=== PATIENT | male | born 1995 | race Caucasian/White ===

== ENCOUNTER 2018-04-04 22:34 | Inpatient (IN) ==
[2018-04-04 23:16] LABS: Basophils % 0.3 % (0.1-2.0); Eosinophils # 0.5 K/mm3 (0.0-0.4); Eosinophils % 4.8 % (0.1-12.0); Lymphocytes # 2.6 K/mm3 (0.7-4.5); Lymphocytes % 23.7 K/mm3 (10-50); Mean Corpuscular HGB Conc 32.6 g/dL (31.8-35.4); Mean Platelet Volume 8.1 fl (7.4-10.4); Monocytes # 0.5 K/mm3 (0.1-1.0); Monocytes % 4.8 % (1.7-9.3); Neutrophils # 7.4 K/mm3 (1.8-7.8); Neutrophils % 66.3 % (37.0-80.0); Platelet Count 268 K/mm3 (142-424); Red Blood Count 4.99 M/mm3 (4.60-6.20); Red Cell Distribution Width 12.6 % (11.5-17.5); White Blood Count 11.2 K/mm3 (4.8-10.8)
--- NOTE | 2018-04-04 23:26 | Emergency Department Note ---
ED Disposition Clinical Impression: Pilonidal cyst with abscess Abscess of skin or subcutaneous tissue Qualifiers: Site of cutaneous abscess: unspecified site Qualified Code(s): L02.91 - Cutaneous abscess, unspecified Disposition: Admitted as Observation Condition on Discharge: Good Instructions: DI for Skin Abscess Referrals: Hiren Toney [Primary Care Provider] - - Critical Care Critical Care Time: No Attestation: On 04/04/18, the high probability of a clinically significant, sudden or life threatening deterioration of the following system(s) required my full and direct attention, intervention and personal management. The time I documented below is in addition to time spent performing reported procedures but includes the following listed in this critical care notation. Medical Decision Making - Medical Records Medical records reviewed: Yes: I reviewed the patient's medical records. - Joe Inquiry Pt receiving controlled substance: No Vital Signs: 04/04/18 22:40 Temperature 98.8 F Temperature Source Oral Pulse Rate [Right Radial] 110 H Respiratory Rate 18 Blood Pressure [Right Arm] 163/99 Blood Pressure Mean [Right Arm] 120 Blood Pressure Source [Right Arm] Automatic Cuff Blood Pressure Position [Right Arm] Sitting 02 Sat by Pulse Oximetry 97 Oxygen Delivery Method Room Air - Lab Data Lab results reviewed: Yes: I reviewed the patient's lab results. Lab Results 04/04/18 23:05: WBC 11.2 H, RBC 4.99, Hgb 14.0 L, Hct 43.0, MCV 86.0, MCH 28.0, MCHC 32.6, RDW 12.6, Plt Count 268, MPV 8.1, Neut % (Auto) 66.3, Lymph % (Auto) 23.7, [place] % (Auto) 4.8, Eos % (Auto) 4.8, Baso % (Auto) 0.3, Neut # (Auto) 7.4 , Lymph # (Auto) 2.6, [place] # (Auto) 0.5, Eos # (Auto) 0.5 H, Baso # (Auto) 0.0 04/04/18 23:05: Sodium 143, Potassium 3.6, Chloride 105, Carbon Dioxide 29, Anion Gap 12.6, BUN 16, Creatinine 1.07, Estimated Creat Clear 229, Estimated GFR 86, Est GFR ( Amer) 105, Glucose 80, Calcium 9.2, Total Bilirubin 0.4 , AST 13 L, ALT 51, Alkaline Phosphatase 67, Total Protein 8.4 H, Albumin 4.0, Globulin 4.4 H, Albumin/Globulin Ratio 0.9 L 04/04/18 23:05: Lactic Acid 1.2 Result diagrams: 04/04/18 23:05 04/04/18 23:05 Orders (Tests/Meds): ED MEDICATIONS Generic Name Dose Route Start Last Admin Trade Name Freq PRN Reason Stop Dose Admin Sodium Chloride 1,000 mls @ 999 mls/hr 04/04/18 23:00 04/04/18 23:09 Sod Chlor 0.9% 1000ml Bag IV 04/05/18 00:00 999 mls/hr .[id number] ALLYSON Administration Discontinued Medications Generic Name Dose Route Start Last Admin Trade Name Freq PRN Reason Stop Dose Admin Vancomycin HCl 3,000 mg/ 500 mls @ 250 mls/hr 04/04/18 23:15 04/04/18 23:20 Sodium Chloride IV 04/04/18 23:16 250 mls/hr ONCE ONE Administration Protocol ORDERS Category Date Time Status ESR [Erythrocyte Sedimentation Rate] Stat Lab 04/04/18 23:05 Received Blood Culture Stat Micro 04/04/18 23:05 Received Wound Culture and Gram Stain Stat Micro 04/04/18 22:00 Results - Physician Consults Physician Consulted: estela Reason -: Admission Skin/Abscess/FB HPI - General Chief complaint: Skin/Abscess/Foreign Body Stated complaint: Sore at top of buttocks Time Seen by Provider: 04/04/18 22:50 Mode of Arrival: Ambulatory Source of Information: Patient, Parent(s), Medical Record Limitations: No Limitations Description of Symptoms (Recalled from ER Triage Doc. by RN): Infected gland on coccyx area. Pt reports he has been antibiotics for 2 days but the area has gotten worse. - History of Present Illness HPI narrative: draining painful area on sacral area with drainage - has seen pcp and placed on abx but no improvement MD complaint: abscess/boil Onset (ago): day(s) Tetanus up to date: unsure Location: back Severity: moderate Associated symptoms: denies other symptoms Treatments prior to arrival: antibiotic - Related Data Home Medications Medication Instructions Recorded Confirmed Sulfamethoxazole/Trimethoprim 1 tab PO BID 04/04/18 04/04/18 [Sulfamethoxazole-Tmp Ds Tablet] Allergies Allergy/AdvReac Type Severity Reaction Status Date / Time No Known Allergies Allergy Verified 04/04/18 22:46 [facility] History I have reviewed the patient's past medical history: Yes - Social History Smoking Status: Current every day smoker Tobacco Type: cigarettes Alcohol Intake: never - Psychiatric History Expresses thoughts of harming self/others: None Suicide Plan Description: No Plan ROS Obtained: Yes All systems reviewed & no additional complaints - Constitutional Constitutional: Denies fever(s) - Eyes Eyes: Denies change in vision - ENT Ears, Nose, Mouth, and Throat: Denies sore throat - Cardiovascular Cardiovascular: Denies chest pain - Respiratory Respiratory: No cough - Gastrointestinal Gastrointestingal: Denies: abdominal pain - Genitourinary Male Genitourinary: Denies hematuria - Musculoskeletal Musculoskeletal: Denies joint pain, Denies joint swelling - Integumentary/Breasts Skin/Breast: Reports boil, Reports other (draining area pilondial area ) - Neurologic Neurologic: Denies seizure-like activity Physical Exam - General General appearance: in no apparent distress - Head Head exam: normocephalic - Eye Eye exam: Present: PERRL, EOMI - ENT ENT exam: Present: mucous membranes moist - Neck Neck exam: Present: trachea midline - Respiratory Respiratory exam: Absent: respiratory distress - Cardiovascular Cardiovascular exam: Present: regular rate - Abdominal Exam Abdominal exam: Present: soft - Extremities Exam Extremities exam: Present: normal inspection - Back Exam Back exam: Absent: CVA tenderness (R), CVA tenderness (L) - Neurological Exam Neurological exam: Present: alert, oriented X3, CN II-XII intact - Psychiatric Psychiatric exam: Present: normal affect - Skin Skin exam: Present: other (tender draining area lower back - sacral area )
[2018-04-04 23:34] LABS: Albumin/Globulin Ratio 0.9 (1.1-1.8); Anion Gap 12.6 mEq/L (5-15); Bilirubin,Total 0.4 mg/dL (0.2-1.0); Calcium 9.2 mg/dL (8.5-10.1); Globulin 4.4 gm/dl (1.3-3.2); Potassium 3.6 mmoL/L (3.5-5.1); Total Protein,Serum 8.4 gm/dL (6.4-8.2)
[2018-04-05 06:37] LABS: Basophils % 0.2 % (0.1-2.0); Eosinophils # 0.3 K/mm3 (0.0-0.4); Eosinophils % 2.2 % (0.1-12.0); Hematocrit 43.5 % (42.0-52.0); Hemoglobin 13.8 g/dL (14.1-18.0); Lymphocytes # 1.7 K/mm3 (0.7-4.5); Lymphocytes % 11.9 K/mm3 (10-50); Mean Corpuscular HGB Conc 31.7 g/dL (31.8-35.4); Mean Corpuscular Hemoglobin 27.5 pg (27.0-31.2); Mean Corpuscular Volume 86.8 fl (80-94); Mean Platelet Volume 7.9 fl (7.4-10.4); Monocytes # 0.6 K/mm3 (0.1-1.0); Neutrophils # 11.9 K/mm3 (1.8-7.8); Neutrophils % 81.7 % (37.0-80.0); Platelet Count 261 K/mm3 (142-424); Red Blood Count 5.01 M/mm3 (4.60-6.20); Red Cell Distribution Width 12.6 % (11.5-17.5); White Blood Count 14.5 K/mm3 (4.8-10.8)
[2018-04-05 06:41] LABS: Calcium 8.5 mg/dL (8.5-10.1)
--- NOTE | 2018-04-05 09:35 | Pharmacy Consult Notes ---
- Pharmacy Consult Date: 04/05/18 Time: 09:32 Referring provider: DR. GUZMÁN Reason for Consult:: VANCOMYCIN DOSING Allergies and ADEs:: Allergies Allergy/AdvReac Type Severity Reaction Status Date / Time No Known Allergies Allergy Verified 04/04/18 22:46 Home Medications:: Home Medications Medication Instructions Recorded Confirmed Type Sulfamethoxazole/Trimethoprim 1 tab PO BID 04/04/18 04/04/18 History [Sulfamethoxazole-Tmp Ds Tablet] Height: 1.91 m Weight: 143.959 kg Laboratory Results:: Laboratory Results - last 24 hr 04/04/18 23:05: WBC 11.2 H, RBC 4.99, Hgb 14.0 L, Hct 43.0, MCV 86.0, MCH 28.0, MCHC 32.6, RDW 12.6, Plt Count 268, MPV 8.1, Neut % (Auto) 66.3, Lymph % (Auto) 23.7, [place] % (Auto) 4.8, Eos % (Auto) 4.8, Baso % (Auto) 0.3, Neut # (Auto) 7.4 , Lymph # (Auto) 2.6, [place] # (Auto) 0.5, Eos # (Auto) 0.5 H, Baso # (Auto) 0.0 04/04/18 23:05: Sodium 143, Potassium 3.6, Chloride 105, Carbon Dioxide 29, Anion Gap 12.6, BUN 16, Creatinine 1.07, Estimated Creat Clear 229, Estimated GFR 86, Est GFR ( Amer) 105, Glucose 80, Calcium 9.2, Total Bilirubin 0.4 , AST 13 L, ALT 51, Alkaline Phosphatase 67, Total Protein 8.4 H, Albumin 4.0, Globulin 4.4 H, Albumin/Globulin Ratio 0.9 L 04/04/18 23:05: Lactic Acid 1.2 04/04/18 23:05: ESR 30 H 04/05/18 06:06: WBC 14.5 H D, RBC 5.01, Hgb 13.8 L, Hct 43.5, MCV 86.8, MCH 27.5 , MCHC 31.7 L, RDW 12.6, Plt Count 261, MPV 7.9, Neut % (Auto) 81.7 H, Lymph % ( Auto) 11.9, [place] % (Auto) 4.0, Eos % (Auto) 2.2, Baso % (Auto) 0.2, Neut # (Auto ) 11.9 H, Lymph # (Auto) 1.7, [place] # (Auto) 0.6, Eos # (Auto) 0.3, Baso # (Auto ) 0.0 04/05/18 06:06: Sodium 142, Potassium 4.0, Chloride 108 H, Carbon Dioxide 25, Anion Gap 13.0, BUN 14, Creatinine 0.92, Estimated Creat Clear 266, Estimated GFR 103, Est GFR ( Amer) 124, Glucose 107 H D, Calcium 8.5 Medical History: Reports:: Hypertension, MRSA Denies:: Cancer, Diabetes Mellitus Type 1, Diabetes Mellitus Type 2, Internal Pacemaker Assessment and Plan - Assessment and plan all Dx Assessment and Plan for all problems:: PATIENT RECEIVED VANCOMYCIN 3 GM OVER 2 HRS LAST NIGHT FROM ER. 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 PATIENT RECEIVED A DOSE OF DIPHEHYDRAMINE. RESTARTING VANCOMYCIN 2.5 GM IN 500 ML TO BE GIVEN OVER 3 HRS. PHARMACY WILL FOLLOW DAILY AND ADJUST APPROPRIATE. PARTH JARAMILLO, THERESAD
--- NOTE | 2018-04-05 10:00 | History & Physical Report ---
*Admission Date: 04/05/18 *Chief complaint: pain in buttock *History of present illness: Mr. Turner is a 22-year-old obese male, who presents with worsening pain in gluteal region. Denies fevers or chills. Noted to have painful lesion at cephalad portion of the gluteal cleft worsening over the past week. Saw his primary care, Dr. Toney, who started Bactrim. He has been taking this for the past 2 days with no improvement in symptoms. Initially presented to the ER due to the pain and inability to sit. Significant purulent discharge was expressed from lesion, consistent with pilonidal cyst. Patient started on vancomycin with wound culture obtained. Admitted to the hospital overnight with surgery consult placed. Denies nausea, vomiting [facility] History Medical History: Reports:: Hypertension, MRSA Denies:: Cancer, Diabetes Mellitus Type 1, Diabetes Mellitus Type 2, Internal Pacemaker Other Surgeries: No: Pacemaker Amputation: No Fractures: No - *Social History Educational Level: Completed High School Smoking Status: Current every day smoker Tobacco Type: cigarettes, smokeless tobacco Alcohol Intake: never Occupational Status: employed Housing: house Household Members: family - Psychiatric History Expresses thoughts of harming self/others: None Suicide Plan Description: No Plan *Family Hx:: Coronary Artery Disease, Diabetes, Heart Attack, Hyperlipidemia, Hypertension, Stroke, Thyroid Disorder Review of Systems - Constitutional Denies anorexia, Denies body ache(s), Denies chills, Denies fever(s) - Eyes Denies blurry vision, Denies change in vision - *Cardiovascular Denies chest pain, Denies chest pain at rest - *Respiratory Denies chest congestion, Denies shortness of breath with activity - *Gastrointestinal Denies abdominal pain, Denies change in bowel habits, Denies nausea - *Genitourinary Denies difficulty urinating, Denies genital pain Comments: Pain in bottom at coccyx - *Musculoskeletal Denies abnormal walking, Denies joint pain - *Neurologic Denies seizure-like activity Meds Home Medications Medication Instructions Recorded Confirmed Type Sulfamethoxazole/Trimethoprim 1 tab PO BID 04/04/18 04/04/18 History [Sulfamethoxazole-Tmp Ds Tablet] Allergies Allergy/AdvReac Type Severity Reaction Status Date / Time vancomycin AdvReac RED MAN'S Verified 04/05/18 09:36 SYNDROME Exam Vital signs and Labs for Last 24 Hours: Temp Pulse Resp BP Pulse Ox 98.1 F 91 H 20 111/59 96 04/05/18 07:55 04/05/18 07:55 04/05/18 07:55 04/05/18 07:55 04/05/18 07:55 Laboratory Results - last 24 hr 04/04/18 23:05: WBC 11.2 H, RBC 4.99, Hgb 14.0 L, Hct 43.0, MCV 86.0, MCH 28.0, MCHC 32.6, RDW 12.6, Plt Count 268, MPV 8.1, Neut % (Auto) 66.3, Lymph % (Auto) 23.7, [place] % (Auto) 4.8, Eos % (Auto) 4.8, Baso % (Auto) 0.3, Neut # (Auto) 7.4 , Lymph # (Auto) 2.6, [place] # (Auto) 0.5, Eos # (Auto) 0.5 H, Baso # (Auto) 0.0 04/04/18 23:05: Sodium 143, Potassium 3.6, Chloride 105, Carbon Dioxide 29, Anion Gap 12.6, BUN 16, Creatinine 1.07, Estimated Creat Clear 229, Estimated GFR 86, Est GFR ( Amer) 105, Glucose 80, Calcium 9.2, Total Bilirubin 0.4 , AST 13 L, ALT 51, Alkaline Phosphatase 67, Total Protein 8.4 H, Albumin 4.0, Globulin 4.4 H, Albumin/Globulin Ratio 0.9 L 04/04/18 23:05: Lactic Acid 1.2 04/04/18 23:05: ESR 30 H 04/05/18 06:06: WBC 14.5 H D, RBC 5.01, Hgb 13.8 L, Hct 43.5, MCV 86.8, MCH 27.5 , MCHC 31.7 L, RDW 12.6, Plt Count 261, MPV 7.9, Neut % (Auto) 81.7 H, Lymph % ( Auto) 11.9, [place] % (Auto) 4.0, Eos % (Auto) 2.2, Baso % (Auto) 0.2, Neut # (Auto ) 11.9 H, Lymph # (Auto) 1.7, [place] # (Auto) 0.6, Eos # (Auto) 0.3, Baso # (Auto ) 0.0 04/05/18 06:06: Sodium 142, Potassium 4.0, Chloride 108 H, Carbon Dioxide 25, Anion Gap 13.0, BUN 14, Creatinine 0.92, Estimated Creat Clear 266, Estimated GFR 103, Est GFR ( Amer) 124, Glucose 107 H D, Calcium 8.5 I & O for Last 24 hours: Intake & Output 04/02/18 04/03/18 04/04/18 04/05/18 23:59 23:59 23:59 23:59 Weight 149.232 kg 143.959 kg Microbiology Reports for the Last 24 Hours: Microbiology 04/04/18 22:00 Buttock - Drainage Gram Stain - Final - *Routine HEENT Exam Head: Present: normocephalic, atraumatic Eye: Present: EOMI ENT: Present: mucous membranes moist - *Routine Neck Exam Present: supple, lymphadenopathy - *Routine Respiratory Exam Present: CTA bilaterally. Absent: wheezes, crackles - *Routine Cardiovascular Exam Present: RRR, Normal S1, Normal S2. Absent: murmur - *Routine Abdominal Exam Present: soft Comments: Obese - *Routine Rectal Exam Comments: Purulent drainage from lesion at most cephalad point of gluteal fold, mild surrounding erythema, tender to palpation - *Routine Exam Patient deferred: penile exam - *Routine Extremities Exam Absent: cyanosis, clubbing, edema - *Routine Skin Exam Present: intact. Absent: cyanosis - *Routine Neurological Exam Present: alert, oriented X3, CN II-XII intact H&P: Result - Labs Labs: Short CBC 04/04/18 04/05/18 Range/Units 23:05 06:06 WBC 11.2 H 14.5 H D (4.8-10.8) K/mm3 Hgb 14.0 L 13.8 L (14.1-18.0) g/dL Hct 43.0 43.5 (42.0-52.0) % Plt Count 268 261 (142-424) K/mm3 BMP 04/04/18 04/05/18 23:05 06:06 Sodium 143 142 Potassium 3.6 4.0 Chloride 105 108 H Carbon Dioxide 29 25 BUN 16 14 Creatinine 1.07 0.92 Glucose 80 107 H D Calcium 9.2 8.5 Liver Function 07/27/18 Range/Units 23:05 Total Bilirubin 0.4 (0.2-1.0) mg/dL AST 13 L (15-37) U/L ALT 51 (12-78) U/L Alkaline Phosphatase 67 (46-116) U/L Albumin 4.0 (3.4-5.0) gm/dL Assessment and Plan (1) Pilonidal cyst with abscess Current visit: Yes Status: Acute Category: Medical Code(s): L05.01 - Pilonidal cyst with abscess Wound culture pending Continue antibiotics vancomycin and Zosyn for broad coverage, due to failed treatment with outpatient Bactrim Surgery consult pending N.p.o. pending consult (2) Obesity (BMI 35.0-39.9 without comorbidity) Current visit: Yes Status: Acute Category: Medical Code(s): E66.9 - Obesity, unspecified Complicates all aspects of care
--- NOTE | 2018-04-05 12:04 | Pharmacy Consult Notes ---
[facility] Pharmacy VTE Monitoring - Patient Demographics Admission date: 04/05/18 Report Date: 04/05/18 Time: 12:03 Allergies/Adverse Reactions: Patient Allergies vancomycin Adverse Reaction (Verified 04/05/18 09:36) RED MAN'S SYNDROME Height: 1.91 m Weight: 143.959 kg Patient Problems: Current Active Problems Abscess of skin or subcutaneous tissue (Acute) Pilonidal cyst with abscess (Acute) - VTE Risk Labs: VTE Related Lab Results Hgb 13.8 g/dL (14.1-18.0) L 04/05/18 06:06 Hct 43.5 % (42.0-52.0) 04/05/18 06:06 Plt Count 261 K/mm3 (142-424) 04/05/18 06:06 BUN 14 mg/dL (7-18) 04/05/18 06:06 Creatinine 0.92 mg/dL (0.70-1.30) 04/05/18 06:06 Estimated Creat Clear 266 mL/min (0-300) 04/05/18 06:06 Was VTE Risk Assessment Performed: Yes VTE Score: 1 VTE Risk Level: Very Low Risk - Prophylaxis Location of Applied Device: Bilateral Lower Extremeties (ROSALIND HOSE ORDERED)
--- NOTE | 2018-04-06 05:28 | Discharge Summary ---
General - General Admission date:: 04/05/18 Discharge date: 04/06/18 HPI HPI: Mr. Turner is a 22-year-old obese male, who presents with worsening pain in gluteal region. Denies fevers or chills. Noted to have painful lesion at cephalad portion of the gluteal cleft worsening over the past week. Saw his primary care, Dr. Toney, who started Bactrim. He has been taking this for the past 2 days with no improvement in symptoms. Initially presented to the ER due to the pain and inability to sit. Significant purulent discharge was expressed from lesion, consistent with pilonidal cyst. Patient started on vancomycin with wound culture obtained. Admitted to the hospital overnight with surgery consult placed. Denies nausea, vomiting Hospital Course Hospital Course: Patient admitted due to concern for infected pilonidal cyst. Initiated on broad -spectrum antibiotics consisting of vancomycin and Zosyn. Remained hemodynamically stable, afebrile. Gram stain from purulent discharge of cyst positive for gram-positive cocci, wound culture negative to date. Blood cultures attained on admission and negative to date (>36hrs on day of discharge) . Surgery consulted and assessed wound. No emergent surgical intervention at this time. Transitioned patient to oral clindamycin for continued treatment for a total of 10 days of therapy. Patient will follow up in outpatient setting with surgery for scheduled excision of cyst Objective Vital signs: Temp Pulse Resp BP Pulse Ox 98.6 F 82 20 108/60 98 04/05/18 19:42 04/05/18 19:42 04/05/18 19:42 04/05/18 19:42 04/05/18 20:00 - *Routine HEENT Exam Head: Present: normocephalic, atraumatic Eye: Present: EOMI ENT: Present: mucous membranes moist - *Routine Neck Exam Present: supple. Absent: lymphadenopathy - *Routine Respiratory Exam Present: CTA bilaterally. Absent: rales, stridor, wheezes - *Routine Cardiovascular Exam Present: RRR, Normal S1, Normal S2. Absent: murmur - *Routine Abdominal Exam Present: soft, normoactive bowel sounds - *Routine Rectal Exam Comments: 1 cm lesion at cephalad portion of gluteal cleft. Minimal induration, no surrounding erythema, scant watery purulent discharge - *Routine Exam Patient deferred: penile exam - *Routine Extremities Exam Absent: cyanosis, clubbing, edema - *Routine Skin Exam Present: intact. Absent: cyanosis, erythema - *Routine Neurological Exam Present: alert, oriented X3, CN II-XII intact Results Labs on day of discharge: Labs from last 24 hours 04/05/18 04/05/18 06:06 06:06 WBC 14.5 H D RBC 5.01 Hgb 13.8 L Hct 43.5 MCV 86.8 MCH 27.5 MCHC 31.7 L RDW 12.6 Plt Count 261 MPV 7.9 Neut % (Auto) 81.7 H Lymph % (Auto) 11.9 [place] % (Auto) 4.0 Eos % (Auto) 2.2 Baso % (Auto) 0.2 Neut # (Auto) 11.9 H Lymph # (Auto) 1.7 [place] # (Auto) 0.6 Eos # (Auto) 0.3 Baso # (Auto) 0.0 Sodium 142 Potassium 4.0 Chloride 108 H Carbon Dioxide 25 Anion Gap 13.0 BUN 14 Creatinine 0.92 Estimated Creat Clear 266 Estimated GFR 103 Est GFR ( Amer) 124 Glucose 107 H D Calcium 8.5 Preliminary micro results at discharge 04/04/18 22:00 Wound Culture - Preliminary Buttock - Drainage NO GROWTH AFTER 24 HOURS DS: Diagnosis - Discharge Diagnosis (1) Pilonidal cyst with abscess Status: Acute (2) Obesity (BMI 35.0-39.9 without comorbidity) Status: Acute Discharge Plan - Patient Discharge Instructions ACTIVITY: Continue current activity DIET: continue same diet - Follow up Plan Follow up with: Kobe Monsalve MD [Staff Physician] - 10 days (Patient needs assessment for pilonidal cyst excision) Hiren Toney [Primary Care Provider] - 1 month Disposition: Home, Self-Jail Medications: Home Medications Medication Instructions Recorded Confirmed Type Sulfamethoxazole/Trimethoprim 1 tab PO BID 04/04/18 04/04/18 History [Sulfamethoxazole-Tmp Ds Tablet] Prescriptions/Medication Reconciliation: New RX: Clindamycin HCl [Cleocin 150mg Capsule] 300 mg PO QID 8 Days #64 cap Discontinued Sulfamethoxazole/Trimethoprim [Sulfamethoxazole-Tmp Ds Tablet] 1 tab PO BID
--- NOTE | 2018-04-06 09:34 | Pharmacy Consult Notes ---
- Pharmacy Consult Date: 04/06/18 Time: : Referring provider: DR. GUZMÁN Reason for Consult:: VANCOMYCIN LEVEL AND DOSING CHANGE Allergies and ADEs:: Allergies Allergy/AdvReac Type Severity Reaction Status Date / Time vancomycin AdvReac RED MAN'S Verified 04/05/18 09:36 SYNDROME Home Medications:: Home Medications Medication Instructions Recorded Confirmed Type Clindamycin HCl 300 mg PO QID 04/06/18 04/06/18 History Height: 1.91 m Weight: 143.959 kg Laboratory Results:: Laboratory Results - last 24 hr 04/06/18 08:17: Vancomycin Trough 25.2 H Medical History: Reports:: Hypertension, MRSA Denies:: Cancer, Diabetes Mellitus Type 1, Diabetes Mellitus Type 2, Internal Pacemaker Assessment and Plan (1) Pilonidal cyst with abscess Status: Acute Category: Medical Code(s): L05.01 - Pilonidal cyst with abscess (2) Obesity (BMI 35.0-39.9 without comorbidity) Status: Acute Category: Medical Code(s): E66.9 - Obesity, unspecified - Assessment and plan all Dx Assessment and Plan for all problems:: PATIENT'S VANCOMYCIN TROUGH LEVEL WAS 25.2 MCG/ML AFTER ONE DOSE OF 3 GM IN ER AND TWO DOSES OF 2.5 MG Q8H GIVEN OVER 3 HOURS. RECOMMEND IF PATIENT WAS CONTINUING VANCOMYCIN TO PROCEED WITH 2500 MG Q12H AT THIS TIME WITH NEXT DOSE STARTING AT 1700 THIS EVENING. PATIENT IS BEING D/C HOME TODAY WITH PO ABX. PARTH JARAMILLO, THERESAD
== END 2018-04-06 09:15 | disposition home or self-care (01) ==
LOC: ER 22:34 → 2ND 22:34 → OBSVTOIN 04-05 00:05 → 2ND 04-05 00:09
PROVIDERS: ADMIT Internal Medicine Adolescent Medicine; ATTEND Internal Medicine Adolescent Medicine
CPT/HCPCS: 36415; 80048; 80053; 80202; 83605; 85025; 85651; 87040; 87070; 87077; 87186; 87205; 96365; 96366; 99284; J2543; J3370

== ENCOUNTER → 2019-09-22 15:59 | Outpatient (POV) | payer BC, SELFPAY | PROVIDERS: Visit Provider Dermatology | DX: Z00.00 Encounter for general adult medical examination without abnormal findings (principal) ==

== ENCOUNTER → 2020-09-21 08:01 | Outpatient (CLI) | payer BC, OTHER, SELFPAY ==
--- NOTE | 2020-09-21 08:04 | CA_ITS ---
APPROVED REPORT Radiator Specialist: Sasha Marquez RVT Study Quality: Good Indications: Uncontrolled HTN Risk Factors Hypertension Obesity Smoking Renal Artery Doppler Origin (R) 160.4/ cm/sec Proximal (R) 197.3/ cm/sec Mid (R) 171.6/ cm/sec Distal (R) 179.6/ cm/sec Renal Aorta Ratio (R) 1.37 Segmental A. (R) 50.7/20.1 cm/sec RI: 0.60 Segmental A. Sup (R) 32.4/12.5 cm/sec Segmental A. Mid (R) 44.7/14.9 cm/sec Segmental A. Inf (R) 50.7/20.1 cm/sec Origin (L) 163.6/ cm/sec Proximal (L) 206.9/ cm/sec Mid (L) 157.2/ cm/sec Distal (L) 97.8/ cm/sec Renal Aorta Ratio (L) 1.43 Segmental A. (L) 59.9/19.1 cm/sec RI: 0.68 Segmental A. Sup (L) 46.3/19.1 cm/sec Segmental A. Mid (L) 59.9/19.1 cm/sec Segmental A. Inf (L) 44.5/20.0 cm/sec Renal Measurements Kidney Size (R) 12.5x7.2 cm Cortical Thickness (R) 1.9 cm Kidney Size (L) 12.8x8.2 cm Cortical Thickness (L) 2.1 cm Findings Study suggests less than 60% stenosis of the bilateral renal arteries. Conclusion Study suggests less than 60% stenosis of the bilateral renal arteries. Electronically signed by : Yariel Delgadillo MD 09/21/2020 17:52:30
--- NOTE | 2020-09-21 08:04 | CA_ITS ---
APPROVED REPORT EXAM: Comprehensive 2D, Doppler, and color-flow Echocardiogram Research Greenhouse Supervisor: Sasha Marquez RVT Ht: 6 ft 3 in Wt: 331lbs BSA: 2.72 BP: 156/81 mmHg Indications: HTN,EX SMOKER,PALPS,OBESITY,FATIGUE 2D Dimensions LVOT 2.11 cm (M/F) 1.5-2.5 M-Mode Dimensions RVDd 3.69 cm (0.9-2.6) LA Diam 3.77 cm (1.9-4.0) LVDd 5.17 cm (3.5-5.7) Ao Diam 2.97 cm (2.0-3.7) LVDs 3.61 cm (3.5-5.7) IVSd 0.99 cm (0.6-1.1) PWd 0.95 cm (0.6-1.1) EF (Teich) 57.10% FS 30.20% EDV (Teich) 127.80 mL ESV (Teich) 54.80 mL LV Diastology E Decel Time 150.00 (160-240 msec) E/A Ratio 1.7 MED E' 8.00 (< 7 cm/sec) E'/MED E' Ratio 14.63 (>14) LAT E' 11.20 (<10 cm/sec) E/LAT E' Ratio 10.45 (>14) Mitral Valve MV E Max Juan José. 117.00 (40-130 cm/s) MV A Velocity 68.00 (40-130 cm/s) E/A Ratio 1.72 MV Decel. Time 150.00 (160-240 ms) MV PHT 44.00 ms Pulmonary Valve PV Peak Velocity 115.00 (50-150 cm/s) Left Ventricle Left atrium is normal size, left ventricle is normal size, there is no concentric left ventricular hypertrophy, visually estimated ejection fraction 55% with no regional wall motion abnormality. Diastolic parameters are within normal range. Right Ventricle Right atrium is normal size, right ventricle is qualitatively mildly enlarged with normal contractility. Aortic Valve Aortic valve is grossly normal. There is no aortic stenosis or aortic insufficiency. Mitral Valve Mitral valve is grossly normal, there is no mitral stenosis, there is trace mitral regurgitation. Tricuspid Valve Tricuspid valve is grossly normal, there is trace tricuspid regurgitation, tricuspid regurgitation jet velocity is inadequate for calculation of the right ventricular systolic pressure. Pulmonic Valve Pulmonic valve is poorly visualized. Great Vessels Aortic root is normal size. Pericardium No significant pericardial effusion noted. Conclusion 1. Normal left ventricular size, preserved left ventricular systolic function, visually estimated ejection fraction 55% with no regional wall motion abnormality, diastolic parameters are within normal range. 2. Qualitatively mildly enlarged right ventricle with normal contractility. 3. Trace mitral and tricuspid regurgitation. 4. No significant pericardial effusion noted. Electronically signed by : Jose Angel Whipple, 09/22/2020 14:22:23
--- NOTE | 2020-09-21 08:04 | CA_ITS ---
APPROVED REPORT Exam: Exercise Treadmill Technologist: Nyasia Daniel Ht: 6 ft 3 in Wt: 331 lbs BSA: 2.72 m2 HR: 66 bpm BP: 113/62 mmHg Indications: HYPERtension Stress Test Details Test: Syed HR Resting HR: 76 bpm Max Heart Rate (APMHR): 195 bpm Max HR Achieved: 171 bpm Target HR (85% APMHR): 165 bpm % of APMHR: 87 Recovery HR: 101 bpm BP Resting BP: 113.0/62.0 mmHg Max BP: 177.0/75.0 mmHg Recovery BP: 121.0/57.0 mmHg ECG Resting ECG: Normal sinus rhythm, LPFB Recovery ECG: Normal sinus rhythm, LPFB Clinical Exercise duration: 09:41 min Highest Stage Achieved: Exercise capacity: 10.1 METs Stress ECG Conclusion Patient exercised 9:41 on Syed Protocol. Test stopped due to shortness of air, fatigue. Symptoms: No chest pain. Arrhythmias/Ectopy: None ST-T Changes: Normal ST response to exercise. Conclusion: Normal GXT. GXT only (no imaging). Test Summary RECOVERY 03:00 0.0 0.0 120 . 177/ 75 . . REST . . . . . . . Standing REST 03:12 0.0 0.0 76 . 113/ 62 . . Stage 1 01:00 10.0 1.7 101 . . . . Stage 1 02:00 10.0 1.7 108 . . . . Stage 1 03:00 10.0 1.7 112 . . . . Stage 2 01:00 12.0 2.5 122 . 145/ 60 . . Stage 2 02:00 12.0 2.5 126 . 145/ 60 . . Stage 2 03:00 12.0 2.5 127 . 160/ 60 . . Stage 3 01:00 14.0 3.4 139 . . . . Stage 3 02:00 14.0 3.4 149 . . . . Stage 3 03:00 14.0 3.4 155 . . . . Stage 4 00:41 16.0 4.2 168 . . . Stop exercise at 09:41 RECOVERY 01:00 0.0 0.0 156 . . . . RECOVERY 02:00 0.0 0.0 133 . . . . RECOVERY 03:00 0.0 0.0 120 . 177/ 75 . . RECOVERY 04:00 0.0 0.0 112 . 169/ 64 . . RECOVERY 05:00 0.0 0.0 107 . 169/ 64 . . RECOVERY 06:00 0.0 0.0 103 . 169/ 64 . . RECOVERY 07:00 0.0 0.0 101 . 121/ 57 . . RECOVERY 07:19 0.0 0.0 101 . 121/ 57 . . Electronically signed by : Jose Angel Whipple, 09/22/2020 13:19:22
[2020-09-21 09:14] LABS: Basophils # 0.1 K/mm3 (0-0.2); Basophils % 0.6 % (0.1-2.0); Eosinophils # 0.5 K/mm3 (0.0-0.4); Eosinophils % 5.1 % (0.1-12.0); Hematocrit 45.8 % (42.0-52.0); Hemoglobin 14.3 g/dL (14.1-18.0); Lymphocytes # 2.3 K/mm3 (0.7-4.5); Lymphocytes % 26.5 % (10-50); Mean Corpuscular HGB Conc 31.2 g/dL (31.8-35.4); Mean Corpuscular Hemoglobin 27.7 pg (27.0-31.2); Mean Corpuscular Volume 88.7 fl (80-94); Mean Platelet Volume 8.6 fl (7.4-10.4); Monocytes # 0.5 K/mm3 (0.1-1.0); Monocytes % 5.1 % (1.7-9.3); Neutrophils # 5.5 K/mm3 (1.8-7.8); Neutrophils % 62.7 % (37.0-80.0); Platelet Count 285 K/mm3 (142-424); Red Blood Count 5.17 M/mm3 (4.60-6.20); Red Cell Distribution Width 13.2 % (11.5-17.5); White Blood Count 8.8 K/mm3 (4.8-10.8)
[2020-09-21 10:06] LABS: Chloride 104 mmol/L (98-107); Potassium 4.3 mmoL/L (3.5-5.1); Sodium 142 mmol/L (136-145)
[2020-09-21 10:08] LABS: Bilirubin,Unconjugated 0.5 mg/dL (0.0-1.1); Blood Urea Nitrogen 16 mg/dl (9-20); Estimated Glomerular Filt Rate 103 ml/min (>60); GFR (African American) 124 ML/MIN (>60)
[2020-09-21 10:09] LABS: Alanine Aminotransferase 34 U/L (12-78); Albumin Level 4.9 g/dl (3.5-5.0); Alkaline Phosphatase 51 U/L (38-126); Anion Gap 13.3 mEq/L (5-15); Aspartate Amino Transferase 21 U/L (17-59); Bilirubin,Direct 0.2 mg/dl (0.0-0.4); Bilirubin,Indirect 0.6 mg/dL (0.0-0.9); Bilirubin,Total 0.8 mg/dl (0.2-1.3); Calcium 10.1 mg/dl (8.4-10.2); Carbon Dioxide 29 mmol/L (22.0-30.0); Chol/HDL Ratio 4.1 (1-3.5); Cholesterol 168 mg/dl (140-200); Glucose 107 mg/dl (74-100); HDL Cholesterol 41 mg/dl (40-60); Total Protein,Serum 8.2 g/dl (6.3-8.2); Triglycerides 122 mg/dl (30-150); VLDL Cholesterol 24 mg/dL (0-40)
[2020-09-21 10:21] LABS: Direct LDL Cholesterol 99.38 mg/dL (100-129)
[2020-09-21 10:25] LABS: Free T4 (Free Thyroxine) 1.12 ng/dl (0.78-2.19)
[2020-09-21 10:40] LABS: Thyroid Stimulating Hormone 1.67 uIU/mL (0.465-4.68)
== END ==
PROVIDERS: PCP Internal Medicine; Visit Provider Urology
DX: R00.2 Palpitations (principal); I10 Essential (primary) hypertension; Z82.49 Family history of ischemic heart disease and other diseases of the circulatory system
CPT/HCPCS: 36415; 80048; 80061; 80076; 84439; 84443; 85025; 93017; 93306; 93976

== ENCOUNTER → 2020-09-28 13:00 | Outpatient (CLI) | payer BC, SELFPAY ==
[2020-10-07 14:42] LABS: HDL-C 42; Triglycerides 174
[2020-10-07 14:43] LABS: LDL-C 97; LDL-P 1106
[2020-10-07 14:44] LABS: Cholesterol, Total 169
[2020-10-07 14:48] LABS: LDL Size 21.1
[2020-10-07 14:50] LABS: LP-IR Score 65
== END ==
PROVIDERS: Visit Provider Physician Assistant
DX: R00.2 Palpitations (principal); E78.5 Hyperlipidemia, unspecified; I10 Essential (primary) hypertension
CPT/HCPCS: 36415; 83704

== ENCOUNTER 2021-06-04 18:33 | Emergency (ER) | payer BC, OTHER, SELFPAY ==
[2021-06-04 18:34] VITALS: BP 148/86; PULSE 92; RESP 18; TEMP 37.1; O2SAT 96; BMI 40.6
--- NOTE | 2021-06-04 18:46 | XR_ITS ---
PROCEDURE INFORMATION: Exam: XR Left Hand Exam date and time: 06/04/2021 6:46 PM Age: 25 years old Clinical indication: Injury or trauma; Other: Hydrolic fluid shot into palm of hand by accident; Wound; Left; Injury date: 06/04/2021; Additional info: Pain hydrolic fluid shot into palm of hand by accident TECHNIQUE: Imaging protocol: XR Left hand. Views: 3 or more views. COMPARISON: No relevant prior studies available. FINDINGS: Bones/joints: No acute displaced fracture. No dislocation. Soft tissues: Normal. No radiopaque foreign body. IMPRESSION: No acute finding.
--- NOTE | 2021-06-04 18:48 | PC.NURSE ---
Dr Deleon speaking with Dr Parsons
--- NOTE | 2021-06-04 18:56 | PC.NURSE ---
Dr Deleon speaking with [facility]
--- NOTE | 2021-06-04 18:58 | PC.NURSE ---
pt accepted at per Dr Aldridge in the ER
--- NOTE | 2021-06-04 18:59 | HMH.EDEXTP ---
ED Disposition Clinical Impression: High pressure injury of left hand Disposition: Xfer Critical Access Hosp Condition on Discharge: Serious Referrals: Hiren Toney [Primary Care Provider] - - Critical Care Critical Care Time: No Attestation: On 06/04/21, the high probability of a clinically significant, sudden or life threatening deterioration of the following system(s) required my full and direct attention, intervention and personal management. The time I documented below is in addition to time spent performing reported procedures but includes the following listed in this critical care notation. Medical Decision Making - Medical Records Medical records reviewed: Yes: I reviewed the patient's medical records. - Joe Inquiry Pt receiving controlled substance: No Vital Signs: 06/04/21 18:34 Temperature 98.7 F Temperature Source Oral Pulse Rate [Left Radial] 92 H Respiratory Rate 18 Blood Pressure [Right Arm] 148/86 H Blood Pressure Mean [Right Arm] 106 Blood Pressure Source [Right Arm] Automatic Cuff Blood Pressure Position [Right Arm] Sitting 02 Sat by Pulse Oximetry 96 Oxygen Delivery Method Room Air Orders (Tests/Meds): ORDERS Category Date Time Status Hand XR left minimum 3 views [XR hand LT min 3V] Stat Exams 06/04/21 18:46 Taken Medical Decision Narrative: 25-year-old male presented to the emergency department with an injury to his left hand. The patient's injury is consistent with a high pressure wound to the palm of the hand. Given the nature of the injury I do believe he requires hand surgery. I did speak to orthopedic surgery on-call and they recommend evaluation by hand or plastic surgery. I spoke with Dr. Aldridge at [facility]. They were notified about the patient. They request emergent transfer for evaluation and washout. Patient request to go POV. Be transferred to [facility] emergency department. Extremity Problem HPI - General Chief complaint: Extremity Injury, Upper Stated complaint: AO hydraulic fluid injected in L hand Time Seen by Provider: 06/04/21 18:40 Mode of Arrival: Ambulatory Limitations: No Limitations Description of Symptoms (Recalled from ER Triage Doc. by RN): states that a hydraulic hose blew off and cut his hand and blew fluid into the palm of his left hand tingling up his arm. - History of Present Illness HPI Narrative: Is a 25-year-old male presented to the emergency department with injury to his left hand. The patient states that he was working on a tractor when one of the hydraulic lines burst. He states that a stream of fluid went into the palm of his hand. This was a high pressure injury. The patient is complaining of some discomfort on the palmar aspect of his thumb. He is having some numbness and tingling around the area as well. Patient denies any other injuries. Tetanus is up-to-date. Is not having any chest pain or shortness of breath. No headache change in vision. No focal weakness. - Related Data Previous Rx's Medication Instructions Recorded bisoprolol fumarate 10 mg tablet 10 mg PO DAILY #90 tab 09/14/20 lisinopril 10 1 tab PO DAILY #90 tab 11/07/20 mg-hydrochlorothiazide 12.5 mg tablet atorvastatin 20 mg tablet 20 mg PO DAILY #30 tab 02/07/21 Allergies Allergy/AdvReac Type Severity Reaction Status Date / Time vancomycin AdvReac RED MAN'S Verified 09/28/20 12:04 SYNDROME [facility] History - Hepatitis A Screen Drug use history?: No High risk sexual behaviors?: No History of sexually transmitted infection?: No Currently employed?: No Childcare worker?: No Do you have indoor plumbing?: Yes Do you have electricity?: Yes Attestation statement:: This patient has been screened for Hepatitis A risk factors. I have reviewed the patient's past medical history: Yes Medical History: Reports:: Hypertension, MRSA Denies:: Cancer, Diabetes Mellitus Type 1, Diabetes Mellitus Type 2, Internal Pacema
[2021-06-04 19:12] VITALS: BP 124/83; PULSE 78; RESP 15; TEMP 36.8; O2SAT 98
== END 2021-06-04 19:15 | disposition critical access hospital (66) ==
PROVIDERS: Emergency Provider Emergency Medicine; PCP Internal Medicine
DX: T70.4XXA Effects of high-pressure fluids, initial encounter (principal); R20.0 Anesthesia of skin; I10 Essential (primary) hypertension; Z86.14 Personal history of Methicillin resistant Staphylococcus aureus infection
CPT/HCPCS: 73130; 99282

== ENCOUNTER → 2021-09-26 12:02 | Outpatient (CLI) | payer BC, OTHER, SELFPAY | PROVIDERS: PCP Internal Medicine; Visit Provider Nurse Practitioner | DX: U07.1 COVID-19 (principal) | CPT/HCPCS: C9803; U0003; U0005 ==

== ENCOUNTER 2021-11-13 18:15 | Emergency (ER) | payer OTHER, SELFPAY ==
[2021-11-13 19:11] VITALS: BP 143/78; PULSE 78; RESP 14; TEMP 37.4; O2SAT 98; BMI 40.5
--- NOTE | 2021-11-13 19:52 | XR_ITS ---
PROCEDURE INFORMATION: Exam: XR Chest Exam date and time: 11/13/2021 7:52 PM Age: 26 years old Clinical indication: Cough; Patient HX: Patient had covid a month ago. Former smoker. ; Additional info: Cough, congestion TECHNIQUE: Imaging protocol: XR of the chest. Views: 2 views. COMPARISON: No relevant prior studies available. FINDINGS: Lungs: Unremarkable. No consolidation. Pleural spaces: Unremarkable. No pleural effusion. No pneumothorax. Heart/Mediastinum: Unremarkable. No cardiomegaly. Bones/joints: There is a subtle region of increased density superimposed upon the posterolateral left 10th rib. This measures approximately 7 mm. IMPRESSION: 1. No evidence of acute cardiopulmonary disease. 2. Subtle 7 mm region of increased density superimposed upon the posterolateral left 10th rib. In light of the clinical history of prior tobacco use, consider follow-up with computerized tomography, if no prior chest radiographs available to further establish the stability of findings.
--- NOTE | 2021-11-13 20:15 | HMH.EDUTC ---
[facility] [place] Disposition Clinical Impression: Acute bronchitis Qualifiers: Bronchitis organism: unspecified organism Qualified Code(s): J20.9 - Acute bronchitis, unspecified Disposition: Home, Self-Care Condition on Discharge: Good Instructions: DI for Acute Bronchitis Additional Instructions: Drink plenty of fluids. Take tylenol or ibuprofen for pain or fever. Take the medications as directed. Follow up with your regular doctor. GO TO THE ER FOR ANY WORSENING SYMPTOMS The cough medication (promethazine dm) will make you drowsy, so don't drive or operate heavy machinery after taking it. Prescriptions: Promethazine/Dextromethorphan [Promethazine-Dm Syrup] 5 ml PO Q6HP PRN #240 ml PRN Reason: Cough [facility] Amoxicillin/Potassium Clav [Amox-Clav 875-125 mg Tablet] 1 tab PO BID #20 tab Transmission Status: Received by [facility] Benzonatate [Benzonatate 100mg cap] 100 mg PO TIDP PRN #30 cap PRN Reason: Cough [facility]: [facility] predniSONE [Deltasone 10mg tablet] 10 mg PO DAILY 9 Days #21 tab Transmission Status[facility] Referrals: Hiren Toney [Primary Care Provider] - Time of Disposition: 20:24 Medical Decision Making - Medical Records Medical records reviewed: No: I reviewed the patient's medical records. - Joe Inquiry Pt receiving controlled substance: No Vital Signs: 11/13/21 19:11 11/13/21 20:33 Temperature 99.4 F 99.4 F Temperature Source Oral Pulse Rate 78 Pulse Rate [Left] 78 Respiratory Rate 14 14 Blood Pressure 143/78 H Blood Pressure [Right Arm] 143/78 H Blood Pressure Mean [Right Arm] 99 02 Sat by Pulse Oximetry 98 - Lab Data Lab results reviewed: Yes: I reviewed the patient's lab results. Orders (Tests/Meds): ORDERS Category Date Time Status Chest XR 2 view (NOT portable) [XR chest 2V] Stat Exams 11/13/21 19:52 Taken [facility] [place] HPI - General Stated complaint: cough, ongoing 2 months Time Seen by Provider: 11/13/21 20:15 Mode of Arrival: Ambulatory Source of Information: Patient Limitations: No Limitations Description of Symptoms (Recalled from Triage Doc. by RN): pt c/o a cough x2 MONTHS. pt was seen at his pcp last week and treated for a sinus infection and given a steroid inj. pt states he is not feeling any better. HEENT Symptoms (Recalled from RN notes): No Resp Symptoms (Recalled from RN notes): Yes Skin Symptoms (Recalled from RN notes): No MS Symptoms (Recalled from RN notes): No Functional Status (Recalled from RN notes): wnl - History of Present Illness Provider Complaint: He states that he has been having issues with a cough and sinus congestion for the past 2 monts. - Related Data Previous Rx's Medication Instructions Recorded lisinopril 10 1 tab PO DAILY #90 tab 11/07/20 mg-hydrochlorothiazide 12.5 mg tablet atorvastatin 20 mg tablet See Rx Instructions .ROUTE 06/26/21 .COMPLEX #90 tab bisoprolol fumarate 10 mg tablet 10 mg PO DAILY #90 tab 10/30/21 Amoxicillin/Potassium Clav 1 tab PO BID #20 tab 11/13/21 [Amox-Clav 875-125 mg Tablet] Benzonatate [Benzonatate 100mg 100 mg PO TIDP PRN #30 cap 11/13/21 cap] Promethazine/Dextromethorphan 5 ml PO Q6HP PRN #240 ml 11/13/21 [Promethazine-Dm Syrup] predniSONE [Deltasone 10mg tablet] 10 mg PO DAILY 9 Days #21 tab 11/13/21 Allergies Allergy/AdvReac Type Severity Reaction Status Date / Time vancomycin AdvReac RED MAN'S Verified 09/28/20 12:04 SYNDROME - Worker's Comp Is this a Worker's Comp case?: No [facility] History - Hepatitis A Screen Drug use history?: No High risk sexual behaviors?: No History of sexually transmitted infection?: No Currently employed?: No Childcare worker?: No Do you have indoor plumbing?: Yes Do you have electricity?: Yes Attestation statement:: This patient has been screened for Hepatitis A risk facto
[2021-11-13 20:33] VITALS: BP 143/78; PULSE 78; RESP 14; TEMP 37.4
== END 2021-11-13 20:34 | disposition home or self-care (01) ==
PROVIDERS: Emergency Provider Nurse Practitioner Family; PCP Internal Medicine
DX: J20.9 Acute bronchitis, unspecified (principal); R94.31 Abnormal electrocardiogram [ECG] [EKG]; I10 Essential (primary) hypertension; F17.290 Nicotine dependence, other tobacco product, uncomplicated; Z79.899 Other long term (current) drug therapy; Z88.1 Allergy status to other antibiotic agents; Z88.3 Allergy status to other anti-infective agents; Z86.14 Personal history of Methicillin resistant Staphylococcus aureus infection; Z82.49 Family history of ischemic heart disease and other diseases of the circulatory system; Z83.3 Family history of diabetes mellitus; Z83.438 Family history of other disorder of lipoprotein metabolism and other lipidemia; Z83.49 Family history of other endocrine, nutritional and metabolic diseases
CPT/HCPCS: 71046; 99213; G0463

== ENCOUNTER → 2022-12-20 14:50 | Outpatient (CLI) | payer OTHER, SELFPAY ==
--- NOTE | 2022-12-20 14:50 | CT_ITS ---
FINAL REPORT TECHNIQUE: Thin section axial CT images of the facial bones and sinuses were obtained without contrast. Coronal reformatted images were also obtained.This study was performed with techniques to keep radiation doses as low as reasonably achievable, (ALARA). Individualized dose reduction techniques using automated exposure control or adjustment of mA and/or kV according to the patient''''s size were employed. CLINICAL HISTORY: Sinusitis COMPARISON: None FINDINGS: There is mild mucoperiosteal thickening in the right maxillary sinus. There is moderate mucoperiosteal thickening left maxillary sinus. There is mucosal thickening throughout the ethmoid air cells. There is mild mucoperiosteal thickening in the frontal and sphenoid sinuses. There is narrowing of the right maxillary sinus ostium and infundibulum secondary to mucosal thickening. The left maxillary sinus ostium and infundibulum is obstructed secondary to mucosal thickening. Fall there is a paradoxical left middle turbinate. There is minimal rightward septal deviation. No fluid levels are identified. No fracture or acute bony abnormality is identified. IMPRESSION: Sinus disease as above. Reviewed, Interpreted and Dictated by Raheel Medina III, MD Transcribed by Kimberley Londono Authenticated and [facility]
== END ==
PROVIDERS: PCP Family Medicine; Visit Provider Family Medicine
DX: J32.9 Chronic sinusitis, unspecified (principal); J45.909 Unspecified asthma, uncomplicated
CPT/HCPCS: 70486; 94060

== ENCOUNTER → 2023-03-04 14:10 | Outpatient (CLI) | payer OTHER, SELFPAY | PROVIDERS: PCP Family Medicine; Visit Provider Otolaryngology | DX: G47.30 Sleep apnea, unspecified (principal); R06.83 Snoring | CPT/HCPCS: G0399 ==

== ENCOUNTER → 2023-08-10 09:46 | Outpatient (CLI) | payer OTHER, SELFPAY ==
--- NOTE | 2023-08-10 09:56 | ECG_ITS ---
APPROVED REPORT Exam: Resting ECG HR:85 bpm ECG Measurements Heart Rate 85 AXES MT 165 P 66 QRSd 102 QRS 62 QT 356 T 47 QTc 398 Conclusion SINUS RHYTHM WITH SINUS ARRHYTHMIA NORMAL ECG UNCONFIRMED REPORT Electronically signed by : Saul Colon MD 08/12/2023 17:42:14
[2023-08-10 10:15] LABS: Basophils % 0.5 % (0.1-2.0); Eosinophils # 0.7 K/mm3 (0.0-0.4); Hematocrit 42.9 % (42.0-52.0); Hemoglobin 14.4 g/dL (14.1-18.0); Lymphocytes # 1.9 K/mm3 (0.7-4.5); Mean Corpuscular HGB Conc 33.6 g/dL (31.8-35.4); Mean Corpuscular Volume 86.2 fl (80-94); Mean Platelet Volume 8.7 fl (7.4-10.4); Monocytes # 0.4 K/mm3 (0.1-1.0); Monocytes % 4.6 % (1.7-9.3); Neutrophils # 4.8 K/mm3 (1.8-7.8); Neutrophils % 61.8 % (37.0-80.0); Platelet Count 245 K/mm3 (142-424); Red Blood Count 4.98 M/mm3 (4.60-6.20); Red Cell Distribution Width 13.2 % (11.5-17.5); White Blood Count 7.7 K/mm3 (4.8-10.8)
[2023-08-10 10:56] LABS: Alanine Aminotransferase 44 U/L (12-78); Albumin Level 4.4 g/dl (3.5-5.0); Albumin/Globulin Ratio 1.4 (1.1-1.8); Alkaline Phosphatase 54 U/L (38-126); Anion Gap 11.9 mEq/L (5-15); Aspartate Amino Transferase 28 U/L (17-59); Bilirubin,Total 0.6 mg/dl (0.2-1.3); Blood Urea Nitrogen 14 mg/dl (9-20); Calcium 9.1 mg/dl (8.4-10.2); Carbon Dioxide 27 mmol/L (22.0-30.0); Chloride 105 mmol/L (98-107); Estimated Glomerular Filt Rate 115 ml/min (>60); GFR (African American) 139 ML/MIN (>60); Globulin 3.1 g/dL (1.3-3.2); Glucose 93 mg/dl (74-100); Potassium 3.9 mmoL/L (3.5-5.1); Sodium 140 mmol/L (136-145); Total Protein,Serum 7.5 g/dl (6.3-8.2)
== END ==
PROVIDERS: PCP Family Medicine; Visit Provider Nurse Practitioner
DX: Z01.812 Encounter for preprocedural laboratory examination (principal); J32.9 Chronic sinusitis, unspecified; J34.2 Deviated nasal septum
CPT/HCPCS: 36415; 80053; 85025; 93005

== ENCOUNTER 2023-08-13 07:59 | Day surgery (SDC) | payer OTHER, SELFPAY ==
[2023-08-09 15:00] VITALS: BMI 42.6
[2023-08-13] VITALS (10 sets, daily range): BP systolic 120–150; BP diastolic 64–94; PULSE 93–103; RESP 16–18; TEMP 36.1–43; O2SAT 91–96
--- NOTE | 2023-08-13 10:32 | EXP.ANES.CKL ---
[facility] Disclaimer: The information contained in this section may have been updated after the patient was seen, as this information can be updated by other users. Medical History Abnormal electrocardiography Chronic sinusitis Deviated septum Hypertension Sleep apnea Surgical History History of hand surgery Family History Other No significant family history Social History Smoking Status: Former smoker tobacco type: smokeless tobacco alcohol intake: current substance use type: denies use current occupational status: other Travel in the last 8 weeks: Inside the [place] household members: family housing: house caffeine: Yes [facility] Anesthesia Checklist Patient Identification Patient Identification: Arm Band Structural Data Admitted From: Home Planned Operative Procedure/s: Nasal Septoplasty, FESS Consent for Planned Operative Procedure(s) Verified: Yes Verified Documents: Surgical Consent and History and Physical NPO Status Verified Time NPO: 00:00 Additional verifications Anesthesia Reactions: No Hx Blood Transfusions: No Airway Assessment Mallampati Score:: Class II C-Spine Mobility Assessed: Yes TMJ Mobility Assessed: Yes Dentition: Good Dentition Neurological Assessment Level of Consciousness: Awake and Alert Anesthesia Plan Anesthesia Risk discussed: Yes Anesthesia Plan: Verified ASA Class: III Anesthesia Type: General
--- NOTE | 2023-08-13 11:48 | SUR.OPER ---
Pt family updated at 1148 by Kimberley Butler from Pre-op.
--- NOTE | 2023-08-13 12:30 | EXP.OP.NOTE ---
Date of procedure: 08/13/23 Pre-op Diagnosis:: Chronic pansinusitis bilaterally, deviated septum Post-op Diagnosis:: Chronic pansinusitis bilaterally, deviated septum Procedure performed:: Septoplasty, functional endoscopic sinus surgery with nasal endoscopy and bilateral complete ethmoidectomy, nasal endoscopy and bilateral maxillary antrostomies and removal of antral mucosa disease, nasal endoscopy and bilateral frontal sinusotomies Surgeon:: Rosendo Kolb MD LOSS PREVENTION SPECIALIST:: Rowdy Feeadelina Anesthesia: GETA Estimated blood loss (mL): 150 Operative findings:: Deviated septum right, severe nasal polyp disease obstructing the middle meatuses bilaterally and extending into the anterior and posterior ethmoid, maxillary sinus ostium, and frontal recesses bilaterally causing chronic pansinusitis Operative note:: The patient was brought to the operating room and after adequate general anesthesia the nose was draped in the usual sterile fashion and 1% lidocaine with epinephrine used to locally infiltrate the septum, and middle meatuses bilaterally. Attention was first drawn to the septum where a right hemitransfixion incision was made and mucosal flaps elevated off the bony and cartilaginous septum then the cartilaginous septum was from the bony septum and a large bony spur from the vomer and perpendicular plate of the ethmoid on the right was resected as was a cartilaginous spur on the floor the nose on the right side. The mucosal flaps were then returned to anatomic position and held in place with a 4-0 plain gut horizontal mattress suture and hemitransfixion incision closed with 4-0 chromic. Using a 0 degree sinus endoscope the left middle meatus was then visualized in the middle turbinate medialized and then uncinectomy performed with a pediatric backbiter and microdebrider clearing the nasofrontal tract and infundibulum. The natural ostium to the maxillary sinus was then enlarged and cleared of obstructing polypoid disease to the maxillary sinus was well aerated complete ethmoidectomy was then performed clearing disease polypoid mucosa in the anterior and posterior ethmoid using a microdebrider and straight up-biting Blakesley forceps while spur sparing normal mucosa at the margins defined by the skull base, sphenoid face, and medial orbital wall. The frontal recess was then cleared of obstructing polyp disease till the nasofrontal tract was clear and the frontal sinus well aerated. Nova pack was placed in the left middle meatus and attention drawn to the right side. In similar fashion the middle turbinate was medialized and then uncinectomy performed and nasofrontal tract cleared and infundibulum opened. The natural ostium to the maxillary sinus was then enlarged and cleared of obstructing polyp disease to the maxillary sinus well aerated again anterior and posterior ethmoidectomy was performed clearing disease polypoid mucosa in the anterior and posterior ethmoid using Blakesley forceps and the microdebrider while sparing normal mucosa at the margins again defined by the skull base, sphenoid face, and medial orbital wall. The nasofrontal tract was again cleared of obstructing polyp disease and nova pack placed in the right middle meatus. Wiclox splints were then placed on the septum and secured to the columella using 3-0 nylon and the procedure concluded. All counts correct and blood loss was approximately 150 mL and patient was sent recovery in stable condition Condition: stable Disposition: PACU Complications:: No complication
--- NOTE | 2023-08-13 12:36 | EXP.ANES.I ---
[facility] Anesthesia Record Part I Anesthesia Record I Intake, IV Amount: 1,200 Hydration: Adequate Estimated blood loss (mL): 50 Urine output (mL): 0 Blood Products used (#): none Blood Pressure: 132/64 SaO2: 91 Pulse Rate: 95 Airway Patency: Patent Respiratory Rate: 16 Temperature: 97.5 F Patient is:: Drowsy and Stable Stable to PACU at:: 12:30
--- NOTE | 2023-08-14 08:54 | P.PNANES_ITS ---
[facility] Anesthesia Record Part II Anesthesia Record Part II Discharge Time: 13:00 Destination: Surgical Day Care (OP Surgery) PACU nurse assessment reviewed?: Yes Patient Condition:: Good Anesthesia Complications:: None Swallowing reflex intact?: Yes Airway Patency: Patent Cyanosis?: No Blood Pressure: 142/94 SaO2: 93 Respiratory Rate: 17 Pulse Rate: 100 Temperature: 97.5 F Mental Status: Alert & Oriented Pain level:: 0 Nausea and/or vomitting:: None Intake, IV Amount: 1,200 Hydration: Adequate
[2023-08-14 08:56] VITALS: BP 142/94; PULSE 100; RESP 17; TEMP 36.4; O2SAT 93
== END 2023-08-13 13:40 | disposition home or self-care (01) ==
PROVIDERS: PCP Family Medicine; Visit Provider Otolaryngology
PROC: (CPT 30520; principal; 2023-08-13 09:30)
DX: J32.4 Chronic pansinusitis (principal); J34.2 Deviated nasal septum
CPT/HCPCS: 30520; 31267; 31253; 96374; J2405

== ENCOUNTER 2023-09-10 17:44 | Emergency (ER) | payer OTHER, SELFPAY ==
[2023-09-10 18:50] VITALS: BP 144/82; PULSE 102; RESP 19; TEMP 37.2; O2SAT 98; BMI 60.2
[2023-09-10 19:15] LABS: UTC Strep Screen (Rapid) Negative (Negative)
[2023-09-10 19:35] VITALS: BP 144/82; PULSE 102; RESP 19; TEMP 37.2; O2SAT 98
--- NOTE | 2023-09-10 19:35 | ED_ITS ---
Discharge Plan Disposition Patient Disposition: Home, Self-Care Condition: Good Prescriptions Prescriptions: New amoxicillin 875 mg tablet 875 mg PO Q12H 10 Days Qty: 20 0RF No Action bisoprolol fumarate 10 mg tablet 10 mg PO DAILY Patient Comments: TAKE 1 TABLET BY MOUTH ONCE DAILY lisinopril-hydrochlorothiazide 10-12.5 mg tablet 1 tab PO DAILY Patient Comments: TAKE 1 TABLET BY MOUTH ONCE DAILY Referrals Follow up/Referrals: Robert Warner MD [Primary Care Provider] - See instructions Activity Restrictions/Add. Instructions Additional Instructions/Restrictions: *Monitor Temp, Over the counter Motrin or Tylenol as directed/as needed Tylenol every 4 hours and Motrin every 6 hours (as long as your family doctor has told you that you can take it) for fever or pain. and straight to ER if unable to lower temp less than 101.0 after medication given *Warm salt water gargles may help to soothe the throat *Throat Lozenges? *Warm fluids like tea with honey may help to soothe the throat? *Sleep elevated *Humidifier/Vaporizer *Take medication as prescribed Your throat swab was sent for culture. Those results are typically sent to your primary care. Be sure to follow up in 2-3 days with your family doctor/primary care physician if no improvement so they can review those result and treat if necessary. If you don?t have a primary care doctor, I recommend you get one but in the mean time, you will have to return to a walk in clinic Follow up IMMEDIATELY for new or worsening symptoms or no Noticeable improvement over the next 48-72 hours. 911 for difficulty breathing or swallowing Clinical Impressions Clinical Impression: Otitis media Qualifiers: Otitis media type: unspecified Laterality: bilateral Qualified Code(s): H66.93 - Otitis media, unspecified, bilateral Instructions Patient Instructions: DI for Strep Throat, Middle Ear Infection, Ear Infections (Alternative Therapy) Discharge ED Provider: Kristina Zapien [facility] General Stated complaint: bilateral ear pain Mode of Arrival: Ambulatory Source of Information: Patient Limitations: No Limitations Time Seen by Provider: 09/10/23 19:35 Description of Symptoms (Recalled from Triage Doc. by RN): PATIENT C/O EAR ACHE AND SORE THROAT X 2 DAYS HEENT Symptoms (Recalled from RN notes): Yes Resp Symptoms (Recalled from RN notes): No Skin Symptoms (Recalled from RN notes): No MS Symptoms (Recalled from RN notes): No Functional Status (Recalled from RN notes): WNL History of Present Illness Provider Complaint: Patient states that he has been having bilateral ear pain and sore throat that has got worse over the last couple of days and today his ears was hurting worse so he came in to get checked Related Data Home Medications Medication Instructions Recorded Confirmed bisoprolol fumarate 10 mg tablet 10 mg PO DAILY 09/10/23 09/10/23 lisinopril 10 1 tab PO DAILY 09/10/23 09/10/23 mg-hydrochlorothiazide 12.5 mg tablet Previous Rx's Medication Instructions Recorded amoxicillin 875 mg tablet 875 mg PO Q12H 10 days #20 tabs 09/10/23 Allergies Allergy/AdvReac Type Severity Reaction Status Date / Time vancomycin AdvReac [facility]S Verified 08/21/23 14:23 SYNDROME Worker's Comp Is this a Worker's Comp case?: No [facility] Disclaimer: The information contained in this section may have been updated after the patient was seen, as this information can be updated by other users. Medical History Abnormal electrocardiography Chronic sinusitis Deviated septum Hypertension Sleep apnea Surgical History History of hand surgery S/P nasal septoplasty Family History Other No significant family history Social History Smoking Status: Former smoker tobacco type: smokeless tobacco alcohol intake: current substance use type: denies use current occupational status: other Travel in the last 8 weeks: Inside the [place] household members: family housing: house caffeine: Yes ROS Obtained: Yes All systems reviewed & no additional complaints except as documented and Yes Systems reviewed as appropriate & no additional complaints except as documented Constitutional Constitutional: Reports system reviewed and no additional complaints, except as documented and Reports as per HPI ENT Ears, Nose, Mouth, and Throat: Reports system reviewed and no additional complaints, except as documented, Reports as per HPI, Reports otalgia and Reports sore throat Cardiovascular Cardiovascular: Reports system reviewed and no additional complaints, except as documented and Reports as per HPI Respiratory Respiratory: Reports system reviewed and no additional complaints, except as documented and Reports as per HPI Gastrointestinal Gastrointestingal: Reports system reviewed and no additional complaints, except as documented and as per HPI Musculoskeletal Musculoskeletal: Reports system reviewed and no additional complaints, except as documented and Reports as per HPI Physical Exam General General appearance: alert and in no apparent distress ENT ENT exam: Present mucous membranes moist Expanded ENT Exam TM/Canal exam: Bilateral TM: erythema and bulging Throat exam: Present tonsillar erythema Respiratory Respiratory exam: Present normal lung sounds bilaterally; Absent respiratory distress or wheezes Cardiovascular Cardiovascular exam: Present regular rate, normal rhythm and normal heart sounds Neurological Exam Neurological exam: Present alert, oriented X3 and normal gait Medical Decision Making Joe Inquiry Pt receiving controlled substance: No Joe was queried for this patient: No Vital Signs: 09/10/23 18:50 Temperature 99.0 F Temperature Source Oral Pulse Rate [Left Brachial] 102 H Respiratory Rate 19 Blood Pressure [Left Arm] 144/82 H Blood Pressure Mean [Left Arm] 102 Blood Pressure Source [Left Arm] Automatic Cuff Blood Pressure Position [Left Arm] Sitting 02 Sat by Pulse Oximetry 98 Oxygen Delivery Method Room Air Lab Data Lab results reviewed: Yes I reviewed the patient's lab results. Lab Results 09/10/23 18:49: Strep Scn Rapid Clinic Negative Orders (Tests/Meds): ORDERS Category Date Time Status Strep Screen Confirmation Stat Micro 09/10/23 18:49 Received
[2023-09-10] MEDS: AMOXICILLIN 500MG CAPSULE 500 MG PO (19:46)
== END 2023-09-10 19:46 | disposition home or self-care (01) ==
PROVIDERS: Emergency Provider Nurse Practitioner; PCP Family Medicine
DX: H66.93 Otitis media, unspecified, bilateral (principal); R07.0 Pain in throat; Z87.891 Personal history of nicotine dependence
CPT/HCPCS: 87880; 99212; 99214; G0463

== ENCOUNTER 2024-04-16 09:45 | Outpatient (CLI) | payer OTHER, SELFPAY ==
[2024-04-16 10:12] LABS: Basophils # 0.1 K/mm3 (0-0.2); Eosinophils # 0.7 K/mm3 (0.0-0.4); Eosinophils % 8.9 % (0.1-12.0); Hematocrit 42.4 % (42.0-52.0); Hemoglobin 13.7 g/dL (14.1-18.0); Lymphocytes # 1.7 K/mm3 (0.7-4.5); Lymphocytes % 23.2 % (10-50); Mean Corpuscular HGB Conc 32.2 g/dL (31.8-35.4); Mean Corpuscular Hemoglobin 28.1 pg (27.0-31.2); Mean Corpuscular Volume 87.4 fl (80-94); Mean Platelet Volume 8.7 fl (7.4-10.4); Monocytes # 0.4 K/mm3 (0.1-1.0); Monocytes % 5.5 % (1.7-9.3); Neutrophils # 4.5 K/mm3 (1.8-7.8); Neutrophils % 61.4 % (37.0-80.0); Platelet Count 248 K/mm3 (142-424); Red Blood Count 4.85 M/mm3 (4.60-6.20); Red Cell Distribution Width 13.8 % (11.5-17.5); White Blood Count 7.3 K/mm3 (4.8-10.8)
[2024-04-16 11:02] LABS: Alanine Aminotransferase 59 U/L (12-78); Albumin Level 4.2 g/dl (3.5-5.0); Alkaline Phosphatase 54 U/L (38-126); Aspartate Amino Transferase 33 U/L (17-59); Bilirubin,Indirect 0.6 mg/dL (0.0-0.9); Bilirubin,Total 0.6 mg/dl (0.2-1.3); Bilirubin,Unconjugated 0.6 mg/dL (0.0-1.1); Blood Urea Nitrogen 16 mg/dl (9-20); Calcium 9.3 mg/dl (8.4-10.2); Carbon Dioxide 25 mmol/L (22.0-30.0); Chloride 109 mmol/L (98-107); Chol/HDL Ratio 4.4 (1-3.5); Cholesterol 182 mg/dl (140-200); Estimated Glomerular Filt Rate 115 ml/min (>60); GFR (African American) 139 ML/MIN (>60); Glucose 109 mg/dl (74-100); HDL Cholesterol 41 mg/dl (40-60); Sodium 143 mmol/L (136-145); Total Protein,Serum 7.4 g/dl (6.3-8.2); Triglycerides 154 mg/dl (30-150); VLDL Cholesterol 31 mg/dL (0-40)
[2024-04-16 11:14] LABS: Direct LDL Cholesterol 108.66 mg/dL (100-129)
[2024-04-16 11:20] LABS: Free T4 (Free Thyroxine) 1.09 ng/dl (0.78-2.19)
[2024-04-16 11:33] LABS: Thyroid Stimulating Hormone 2.07 uIU/mL (0.465-4.68)
== END 2024-04-16 23:59 | disposition home or self-care (01) ==
LOC: LAB 09:46
PROVIDERS: PCP Nurse Practitioner Family; Visit Provider Nurse Practitioner Family
DX: R53.83 Other fatigue (principal); I10 Essential (primary) hypertension; E66.01 Morbid (severe) obesity due to excess calories; E78.5 Hyperlipidemia, unspecified; Z82.49 Family history of ischemic heart disease and other diseases of the circulatory system; R00.0 Tachycardia, unspecified
CPT/HCPCS: 36415; 80048; 80061; 80076; 83735; 84439; 84443; 85025

== ENCOUNTER 2024-04-22 10:20 | Outpatient (CLI) | payer OTHER, SELFPAY ==
--- NOTE | 2024-04-22 10:20 | CA_ITS ---
APPROVED REPORT EXAM: Comprehensive 2D, Doppler, and color-flow Echocardiogram Hydraulic Riveter: PRICILLA Butler, RVS Ht: 6 ft 3 in Wt: 347lbs BSA: 2.77 BP: 152/96 mmHg Indications: HTN, Fatigue, Tachycardia, Abn EKG, Apnea Echo Enhancing Agent Comments: TDS: Poor acoustics throughout due to extreme body habitus/ lung impedence 2D Dimensions IVSd 0.93 cm LVEF (Visual) 71.60 % PWd 1.25 cm LA Volume 47.30 mL LVDd 5.36 cm LA Volume Index [id number] mL/m2 (M/F) 16-34 LVDs 3.15 cm EF AP4 50.90 % Aortic Root 2.90 cm GL Strain -21.2 % Left Atrium 3.24 cm RVID Base (AP4) 3.22 cm (M/F) 2.5-4.1 LVOT 2.17 cm (M/F) 1.5-2.5 M-Mode Dimensions RVDd 1.82 cm (0.9-2.6) LVDd 5.36 cm (3.5-5.7) Ao Diam 3.05 cm (2.0-3.7) LVDs 2.93 cm (3.5-5.7) IVSd 1.01 cm (0.6-1.1) PWd 1.11 cm (0.6-1.1) EF (Teich) 75.10% EPSs 0.47 cm FS 43.20% EDV (Teich) 132.40 mL TAPSE 2.84 (<1.7) ESV (Teich) 33.00 mL LV Diastology E Decel Time 169 (160-240 msec) E/A Ratio 2.17 MED E' 9.5 (>= 7 cm/sec) MED A' 11.30 cm/s E'/MED E' Ratio 12.18 (<= 14) LAT E' 15.0 (>= 10 cm/sec) LAT A' 10.70 cm/s E/LAT E' Ratio 7.71 (<= 14) Aortic Valve LVOT Max 103.0 (70-110 cm/s) SAMMI Index 0.93 cm2/m2 LVOT VTI 20.38 cm AoV Peak Juan José. 149.0 (50-130 cm/s) AO Mean GR. 4.70 (<5 mmHg) AO VTI 29.3 (18-25 cm) SAMMI (VTI) 2.57 (2.5-4.5 cm2) Mitral Valve MV E Max Juan José. 116.0 (40-130 cm/s) MV A Velocity 53.0 (40-130 cm/s) E/A Ratio 2.17 MV Decel. Time 169 (160-240 ms) Left Ventricle The left ventricle is normal size. The left ventricular systolic function is normal. The left ventricular ejection fraction is within the normal range. There is normal left ventricular wall thickness. There is normal LV segmental wall motion. The left ventricular diastolic function is normal. LVEF is 55%. Right Ventricle The right ventricle is normal size. The right ventricular systolic function is normal. Atria The left atrium size is normal. The right atrium size is normal. There is no Doppler evidence of interatrial shunt. Aortic Valve The aortic valve opens well. There is no aortic valvular stenosis. Trace aortic regurgitation. Mitral Valve Mild bileaflet mitral valve prolapse is present. No evidence of mitral valve stenosis. Mild mitral regurgitation. Tricuspid Valve The tricuspid valve leaflets are thin and pliable. Trace tricuspid regurgitation. There is insufficient TR jet to estimate RVSP. Pulmonic Valve The pulmonary valve is normal in structure. Trace pulmonic regurgitation. Great Vessels The aortic root is normal in size. The ascending aorta is normal in size. IVC is normal in size and collapses >50% with inspiration. Pericardium There is no pericardial effusion. Other Information Study Quality: Fair Conclusion Normal biventricular systolic function. Mild bileaflet MV prolapse. Mild MR. Electronically signed by : Patricia Hargrove MD 04/24/2024 04:07:38
== END 2024-04-22 23:59 | disposition home or self-care (01) ==
LOC: RT 10:20
PROVIDERS: PCP Nurse Practitioner Family; Visit Provider Nurse Practitioner Family
DX: R00.0 Tachycardia, unspecified (principal); R53.83 Other fatigue; I10 Essential (primary) hypertension; E66.01 Morbid (severe) obesity due to excess calories; Z68.41 Body mass index [BMI] 40.0-44.9, adult; Z87.891 Personal history of nicotine dependence
CPT/HCPCS: 93306

== ENCOUNTER 2024-10-23 15:24 | Outpatient (CLI) | payer OTHER, SELFPAY ==
[2024-10-23 18:14] LABS: Alanine Aminotransferase 56 U/L (12-78); Albumin Level 5.1 g/dl (3.5-5.0); Albumin/Globulin Ratio 1.8 (1.1-1.8); Alkaline Phosphatase 51 U/L (38-126); Anion Gap 19.1 mEq/L (5-15); Aspartate Amino Transferase 33 U/L (17-59); Bilirubin,Total 0.5 mg/dl (0.2-1.3); Blood Urea Nitrogen 17 mg/dl (9-20); Calcium 9.6 mg/dl (8.4-10.2); Carbon Dioxide 25 mmol/L (22.0-30.0); Chloride 102 mmol/L (98-107); Chol/HDL Ratio 3.9 (1-3.5); Cholesterol 180 mg/dl (140-200); Estimated Glomerular Filt Rate 114 ml/min (>60); GFR (African American) 138 ML/MIN (>60); Globulin 2.8 g/dL (1.3-3.2); Glucose 113 mg/dl (74-100); HDL Cholesterol 46 mg/dl (40-60); Potassium 4.1 mmoL/L (3.5-5.1); Sodium 142 mmol/L (136-145); Total Protein,Serum 7.9 g/dl (6.3-8.2); Triglycerides 185 mg/dl (30-150); VLDL Cholesterol 37 mg/dL (0-40)
[2024-10-23 18:25] LABS: Direct LDL Cholesterol 102.84 mg/dL (100-129)
[2024-10-23 18:31] LABS: 25-OH Vitamin D, Total 30.2 ng/mL (30-100)
[2024-10-23 18:37] LABS: Hemoglobin A1C 5.4 % (4.0-6.0)
[2024-10-23 18:46] LABS: Thyroid Stimulating Hormone 2.01 uIU/mL (0.465-4.68)
[2024-10-25 08:08] LABS: Triiodothyronine (T3) Free 3.9 pg/mL (2.0-4.4)
== END 2024-10-23 23:59 | disposition home or self-care (01) ==
LOC: LAB.DROPOF 10-25 04:22
PROVIDERS: PCP Nurse Practitioner Family; Visit Provider Nurse Practitioner Family
DX: R63.5 Abnormal weight gain (principal); L40.9 Psoriasis, unspecified; Z68.41 Body mass index [BMI] 40.0-44.9, adult
CPT/HCPCS: 80053; 80061; 82306; 83036; 84443; 84481

== ENCOUNTER 2025-06-22 14:56 | Outpatient (CLI) | payer OTHER, SELFPAY ==
--- NOTE | 2025-06-22 14:59 | XR_ITS ---
FINAL REPORT CLINICAL HISTORY: right shoulder injury FINDINGS: 2 views of the right shoulder were obtained. There is no fracture or dislocation. The joint space is preserved. Soft tissues are unremarkable. IMPRESSION: No acute osseous abnormality of the right shoulder. Reviewed, Interpreted and Dictated by Janie Madison MD Transcribed by Lorie Lynn Authenticated and [facility]
--- OUTSIDE RECORDS SUMMARY | 2025-06-22 14:59 | XMS_ITS | Clinical Summary ---
Author Organization Healthcare Address [address] [place] [address] Care Team Providers Care Volunteer Recruiter Name Role Phone Hiren Toney MD Primary Care Provider [phone] Allergies Active Allergy Reactions Criticality Noted Date Comments Vancomycin Swelling High 06/04/2021 Medications atorvastatin (Lipitor) 20 MG tablet Take 20 mg by mouth 1 (one) time each day. 05/18/2021 Active lisinopril-hydro CHLOROthiazide 10-12.5 MG tablet Take 1 tablet by mouth 1 (one) time each day. 05/18/2021 Active Active Problems Problem Noted Date Diagnosed Date High pressure injury of left hand 06/04/2021 Overview (06/04/2021): Added automatically from request for surgery [id number] Immunizations Immunization Administration Dates Next Due Tdap 06/04/2021 Social History Tobacco Use Types Packs/Day Years Used Date Smoking Tobacco: Never Smokeless Tobacco: Current PHQ-2 Answer Date Recorded Patient Health Questionnaire-2 Score 0 06/13/2021 Sex and Gender Information Value Date Recorded Sex Assigned at Not on file Legal Sex Male 7:01 PM EDT Gender Identity Not on file Sexual Orientation Not on file Last Filed Vital Signs Vital Sign Reading Time Taken Comments Blood Pressure 126/79 07/11/2021 9:42 AM EDT Pulse 66 07/11/2021 9:42 AM EDT Temperature 36.7 C (98.1 F) 07/11/2021 9:42 AM EDT Respiratory Rate 18 06/05/2021 7:55 AM EDT Oxygen Saturation 95% 07/11/2021 9:42 AM EDT Inhaled Oxygen Concentration - - Weight 144 kg (318 lb) 07/11/2021 9:42 AM EDT Height 190.5 cm (6' 3 ) 07/11/2021 9:42 AM EDT Body Mass Index 39.75 07/11/2021 9:42 AM EDT Plan of Treatment Health Maintenance Due Date Last Done Comments [facility]-Depression Screening 1995 [facility]-Infant/Child/Adol SDOH Screenings 1995 [facility]-Hepatitis B Vaccines (2 of 3 - 3-dose series) 07/14/1996 06/16/1996 [facility]-Varicella Vaccines (2 of 2 - 2-dose childhood series) 1999 06/16/1996 [facility]- SDOH Screenings 2013 [facility]-Adult SDOH Screenings 2013 HPV Vaccines (1 - 3-dose SCDM series) 2022 [id number] Vaccine (1 - season) 2025 [facility]-Influenza Vaccine (#1) 2025 [facility]-DTaP,Tdap,and Td Vaccines (3 - Td or Tdap) 06/04/2031 06/04/2021, 02/12/2007 [facility]-Zoster Vaccines (1 of 2) 2045 06/16/1996 [facility]-HIB Vaccines Aged Out No longer e ligible based on patient's age to complete this topic [facility]-Hepatitis A Vaccines Aged Out No longer eligible based on patient's age to complete this topic [facility]-IPV Vaccines Aged Out No longer e ligible based on patient's age to complete this topic [facility]-Pneumococcal Vaccine: Pediatrics (0 to 5 Years) and At-Risk Patients (6 to 49 Years) Aged Out No longer eligible b ased on patient's age to complete this topic [facility]-Rotavirus Vaccines Aged Out No lo nger eligible based on patient's age to complete this topic Insurance [employer] [facility] MEDICAID Care Teams Volunteer Recruiter Relationship Specialty Start Date End Date Hiren Toney MD [address] [place] [address] [address] [place] [id number] PCP - General 06/13/21
== END 2025-06-22 23:59 | disposition home or self-care (01) ==
LOC: RAD 14:57
PROVIDERS: PCP Nurse Practitioner Family; Visit Provider Physician Assistant
DX: S49.91XA Unspecified injury of right shoulder and upper arm, initial encounter (principal); X58.XXXA Exposure to other specified factors, initial encounter
CPT/HCPCS: 73030